=== PATIENT | female | born 1970 | race Caucasian/White ===

== ENCOUNTER 2018-03-25 10:18 | Emergency (ER) | payer MEDICAID, OTHER ==
[~2018-03-25] VITALS: Ht 154.9 cm; Wt 57.8 kg
[2018-03-25 10:35] VITALS: BP 154/93
--- NOTE | 2018-03-25 11:06 | NUR ---
PT TAKEN FROM [facility] TO [facility]
--- NOTE | 2018-03-25 11:15 | NUR ---
influenza collected and lab informed
--- NOTE | 2018-03-25 11:32 | NUR ---
PT AMBULATES TO BED 8
--- NOTE | 2018-03-25 11:40 | NUR ---
PT. BIB SELF WITH C/O GEN BODY PAIN SINCE YESTERDAY WITH NAUSEA. DENIES ANY VOMITING. 9/10 ACHING BODY PAIN . RR EVEN AND UNLABORED. AFEBRILE AT THIS TIME. SKIN WARM AND DRY TO TOUCH. ABLE TO AMBULATE WITH STEADY GAIT. ER MD MADE AWARE. SAFETY PRECAUTIONS IN PLACE.WILL CONTINUE TO MONITOR
--- NOTE | 2018-03-25 12:45 | NUR ---
PT. RESTING COMFORTABLY IN BED, RR EVEN AND UNLABORED. VSS. WILL CONTINUE TO MONITOR
--- NOTE | 2018-03-25 13:47 | NUR ---
ER MD MONZON AT BEDSIDE AT THIS TIME.
[2018-03-25] MEDS ORDERED: MORPHINE SULFATE 4 MG/ML SYR IM ONE (13:50)
[2018-03-25 14:17] VITALS: BP 129/79
--- NOTE | 2018-03-25 14:18 | NUR ---
Patient discharged with v/s stable. Written and verbal after care instructions given and explained. Patient alert, oriented and verbalized understanding of instructions. Ambulatory with steady gait. All questions addressed prior to discharge. ID band removed. Patient advised to follow up with PMD. Rx of MOTRIN, ZOFRAN, NORCO given. Patient educated on indication of medication including possible reaction and side effects. Opportunity to ask questions provided and answered.
== END 2018-03-25 14:18 | disposition home or self-care (01) ==
LOC: MED 10:18
DX: M79.10 Myalgia, unspecified site (principal); R11.0 Nausea; R22.0 Localized swelling, mass and lump, head; M79.7 Fibromyalgia; M06.9 Rheumatoid arthritis, unspecified; I10 Essential (primary) hypertension; E11.9 Type 2 diabetes mellitus without complications; Z88.1 Allergy status to other antibiotic agents; Z88.6 Allergy status to analgesic agent; Z88.2 Allergy status to sulfonamides
CPT/HCPCS: 36415; 71045; 87804; 96372; 99284; J2270; Q0092